=== PATIENT | female | born 1935 | race Two or more races ===

== ENCOUNTER 2023-04-11 10:32 | Emergency (ER) | payer OTHER ==
[~2023-04-11] VITALS: Ht 152.4 cm; Wt 74.2 kg
[~2023-04-11 10:32] MED LIST: ACET650T79 PO; CAR3125T PO; CEL100T PO; CRANCAP12 OR; LACTCAP35 OR; LISI20TA56 PO; LOVA20TA4 PO; METH1CHW PO; MIRT1TAB38 PO; NOR10T PO; POTA1TAB61 PO; RALO60TA14 PO
[2023-04-11 11:16] VITALS: BP 138/56; PULSE 71; RESP 18; TEMP 98; O2SAT 93
[2023-04-11] MEDS: ACETAMINOPHEN/CODEINE#3 (300/30mg) TAB PO ONE ×2 (11:30→11:40)
[2023-04-11] MEDS ORDERED: ACETAMINOPHEN 500 MG TAB PO ONE (12:00)
== END 2023-04-11 13:29 | disposition home or self-care (01) ==
LOC: ER 10:32
DX: M54.14 Radiculopathy, thoracic region (principal); M12.812 Other specific arthropathies, not elsewhere classified, left shoulder; I10 Essential (primary) hypertension; R20.0 Anesthesia of skin; Z88.6 Allergy status to analgesic agent; Z88.2 Allergy status to sulfonamides
CPT/HCPCS: 72040